=== PATIENT | female | born 1985 | race African-American/Black ===

== ENCOUNTER 2019-07-10 09:16 | Inpatient (IN) | payer OTHER ==
[~2019-07-10] VITALS: Ht 157.5 cm; Wt 71.5 kg
[~2019-07-10 09:16] MED LIST: LABE200T25 PO; Lanolin Hpa TOP; SIME80TA60 PO; TUCKS PR
[2019-07-10] MEDS ORDERED: MAGNESIUM SULFATE 20 GM/500 ML 500 ML IV SCH (09:41)
[2019-07-10] MEDS ORDERED: LABETALOL HCL 20MG INJ ONE (09:49)
[2019-07-10] MEDS ORDERED: METHYLERGONOVINE 0.2 MG INJ IM PRN (10:00)
[2019-07-10] MEDS ORDERED: OXYTOCIN 30 UNITS/LR 500 ML IV SCH ×3 (10:00→11:30)
[2019-07-10] MEDS ORDERED: CARBOPROST 250 MCG INJ IM PRN (10:00)
[2019-07-10] MEDS ORDERED: LIDOCAINE 1% (MPF) 30 ML INJ INJ PRN (10:00)
[2019-07-10] MEDS ORDERED: AMPICILLIN 2 GM/NS (PMX) 100 ML IV ONE (10:00)
[2019-07-10] MEDS ORDERED: MAGNESIUM SULFATE 4 GM/100 ML 100 ML IV ONE (10:00)
[2019-07-10] MEDS ORDERED: LABETALOL HCL 20MG INJ IV ONE (10:00)
[2019-07-10] MEDS ORDERED: MISOPROSTOL 200 MCG TAB PR PRN (10:00)
[2019-07-10] MEDS ORDERED: OXYTOCIN 30 UNITS/LR 500 ML IV PRN (10:00)
[2019-07-10] MEDS ORDERED: BUTORPHANOL 2 MG INJ IV PRN ×2 (10:00)
[2019-07-10] MEDS ORDERED: ONDANSETRON 4 MG INJ ONE (10:33)
[2019-07-10] MEDS ORDERED: ONDANSETRON 4 MG INJ IV STA (10:36)
[2019-07-10] MEDS: LACTATED RINGER'S 1,000 ML IV SCH (10:37)
[2019-07-10 10:42] VITALS: Ht 157.5 cm; Wt 71.5 kg
[2019-07-10] MEDS ORDERED: MAGNESIUM SULFATE 40GM/1000ML 1,000 ML IV SCH (12:00)
[2019-07-10] MEDS ORDERED: AMPICILLIN 1 GM/NS (PMX) 50 ML IV SCH (14:00)
[2019-07-10] MEDS ORDERED: FENTAnyl 2MCG/ML-ROPIV 0.2% 100 ML ONE (17:28)
[2019-07-10] MEDS ORDERED: FENTAnyl 2MCG/ML-ROPIV 0.2% 100 ML BAG EPI SCH (17:30)
[2019-07-10] MEDS ORDERED: DIPHENHYDRAMINE 50 MG INJ IV PRN (17:30)
[2019-07-10] MEDS ORDERED: HYDROmorphONE 0.5 MG/0.5 ML SYG IV PRN ×2 (17:30)
[2019-07-10] MEDS ORDERED: ONDANSETRON 4 MG INJ IV PRN (17:30)
[2019-07-10] MEDS ORDERED: NALOXONE (0.4 MG/ML) INJ IV PRN (17:30)
[2019-07-10] MEDS ORDERED: KETOROLAC 30 MG INJ IV PRN (17:30)
[2019-07-11] VITALS (17 sets, daily range): BP systolic 120–157; BP diastolic 70–100; PULSE 63–87; RESP 16–20
[2019-07-11] MEDS: LACTATED RINGER'S 1,000 ML IV SCH ×4 (01:41→19:52)
[2019-07-11] MEDS ORDERED: MINERAL OIL LIGHT 10 ML VIAL TOP ONE (02:30)
[2019-07-11] MEDS ORDERED: OXYTOCIN 30 UNITS/LR 500 ML IV SCH (02:57)
[2019-07-11] MEDS ORDERED: NACL 0.9% 3 ML SYG IV SCH (03:00)
[2019-07-11] MEDS: IBUPROFEN 600 MG TAB PO SCH ×4 (03:00→17:27)
[2019-07-11] MEDS ORDERED: DIPHENHYDRAMINE 25 MG CAP PO PRN (03:00)
[2019-07-11] MEDS ORDERED: MISOPROSTOL 200 MCG TAB PR PRN (03:00)
[2019-07-11] MEDS ORDERED: OXYTOCIN 30 UNITS/LR 500 ML IV PRN (03:00)
[2019-07-11] MEDS ORDERED: CARBOPROST 250 MCG INJ IM PRN (03:00)
[2019-07-11] MEDS ORDERED: HYDROCODONE/APAP (5/325) TAB PO PRN (03:00)
[2019-07-11] MEDS ORDERED: ZOLPIDEM 5 MG TAB PO PRN (03:00)
[2019-07-11] MEDS ORDERED: ONDANSETRON 4 MG INJ IV PRN (03:00)
[2019-07-11] MEDS: SENNA/DOCUSATE NA (8.6MG/50MG) TAB PO SCH ×3 (03:00→22:29)
[2019-07-11] MEDS ORDERED: LABETALOL HCL 20MG INJ ONE (03:36)
[2019-07-11] MEDS ORDERED: LABETALOL HCL 20MG INJ IV ONE (04:00)
[2019-07-11] MEDS: MAGNESIUM SULFATE 40GM/1000ML 1,000 ML IV SCH (06:04)
[2019-07-11] MEDS: WITCH HAZEL/GLYCERIN PAD PR PRN (09:33)
[2019-07-11] MEDS: LABETALOL 200 MG TAB PO SCH ×2 (09:33→22:29)
[2019-07-11] MEDS: LANOLIN HPA 1 PKT TOP PRN (09:33)
[2019-07-12 00:30] VITALS: BP 135/83; PULSE 72; RESP 19
[2019-07-12] MEDS: IBUPROFEN 600 MG TAB PO SCH ×4 (00:46→18:07)
[2019-07-12] MEDS: MAGNESIUM SULFATE 40GM/1000ML 1,000 ML IV SCH (01:30)
[2019-07-12] MEDS: LACTATED RINGER'S 1,000 ML IV SCH (01:41)
[2019-07-12 04:45] VITALS: BP 117/65; PULSE 64; RESP 19
[2019-07-12 07:30] VITALS: BP 125/74; PULSE 77; RESP 18
[2019-07-12 08:00] VITALS: BP 125/74; PULSE 77; RESP 18
[2019-07-12] MEDS: SENNA/DOCUSATE NA (8.6MG/50MG) TAB PO SCH ×2 (08:48→22:27)
[2019-07-12] MEDS: LABETALOL 200 MG TAB PO SCH ×2 (08:49→22:27)
[2019-07-12 15:57] VITALS: BP 130/84; PULSE 79; RESP 18
[2019-07-12 19:45] VITALS: BP 124/60; PULSE 78; RESP 19
[2019-07-13] MEDS: IBUPROFEN 600 MG TAB PO SCH ×4 (00:05→17:44)
[2019-07-13 04:00] VITALS: BP 104/65; PULSE 74; RESP 19
[2019-07-13 08:00] VITALS: BP 122/79; PULSE 74; RESP 18
[2019-07-13] MEDS ORDERED: VARICELLA VACCINE LIVE/PF 1,350 UNIT/0.5 ML ML SC* ONE (09:00)
[2019-07-13] MEDS ORDERED: MEASLES,MUMPS,RUBELLA VACCINE INJ SC* ONE (09:00)
[2019-07-13] MEDS: LABETALOL 200 MG TAB PO SCH ×2 (09:28→21:00)
[2019-07-13] MEDS: SENNA/DOCUSATE NA (8.6MG/50MG) TAB PO SCH ×2 (09:28→21:00)
[2019-07-13 16:01] VITALS: BP 127/72; PULSE 79; RESP 18
[2019-07-13 19:45] VITALS: BP 144/84; PULSE 77; RESP 20
[2019-07-13] MEDS: WITCH HAZEL/GLYCERIN PAD PR PRN (20:59)
[2019-07-13] MEDS: LANOLIN HPA 1 PKT TOP PRN (20:59)
== END 2019-07-13 23:00 | disposition home or self-care (01) | DRG 807 ==
LOC: OBT 09:16 → L-D 09:16 → OBT 09:40 → L-D 10:03 → PP1 07-11 08:50
PROVIDERS: ADMIT Obstetrics & Gynecology; ATTEND Obstetrics & Gynecology
PROC: 4A1HXCZ Monitoring of Products of Conception, Cardiac Rate, External Approach (ICD-10-PCS; 2019-07-10)
PROC: 10D07Z6 Extraction of Products of Conception, Vacuum, Via Natural or Artificial Opening (ICD-10-PCS; principal; 2019-07-11)
PROC: 0HQ9XZZ Repair Perineum Skin, External Approach (ICD-10-PCS; 2019-07-11)
DX: O14.14 Severe pre-eclampsia complicating childbirth (principal); Z37.0 Single live birth; O76 Abnormality in fetal heart rate and rhythm complicating labor and delivery; O70.0 First degree perineal laceration during delivery; Z3A.39 39 weeks gestation of pregnancy
CPT/HCPCS: 62322; 80053; 80076; 83735; 84560; 85025; 85384; 85610; 85730; 86592; 86850; 86900; 86901; 87340; 88307; 90716; 99464; G0463; J0290; J0595; J2405; J2590; J3010; J7120